=== PATIENT | female | born 2005 | race Caucasian/White ===

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

== ENCOUNTER 2024-01-13 11:23 | Observation (INO) | payer BC, MEDICAID, OTHER ==
[2024-01-14] MEDS ORDERED: NITR-87 PO (00:40)
--- NOTE | 2024-01-15 07:44 | DVHDS2 ---
Physician Discharge Progress N Final Diagnosis: abd pain Operations or Procedures: Operations or Procedures nst,sono Condition on Discharge: Good Disposition: Home Discharge Instructions: Diet: Regular Activity: No Restrictions, As Tolerated Medications: na Follow Up Care: Specialist: 2d Discharge Statement: "Patient was advised to return to the ER or call 911 if any headaches, dizziness, shortness of breath, chest pain, abdominal pain, bleeding, fevers, or worsening of medical condition. Patient was counseled about treatment plan, medications, possible side effects, patientverbalized understanding. All questions were answered to the best of my ability. This discharge took greater then 30 minutes in planning, reviewing documentation, counseling the patient, and discussing with other team members." YASMIN COOPER DO Jan 15, 2024 07:44
== END 2024-01-14 01:01 | disposition home or self-care (01) ==
LOC: LDRP 11:23
PROVIDERS: ADMIT Obstetrics & Gynecology; ATTEND Obstetrics & Gynecology
DX: O26.892 Other specified pregnancy related conditions, second trimester (principal); M79.10 Myalgia, unspecified site; R06.02 Shortness of breath; M79.89 Other specified soft tissue disorders; Z3A.25 25 weeks gestation of pregnancy; Z79.899 Other long term (current) drug therapy
CPT/HCPCS: 59025; 81002; 94760; G0378

== ENCOUNTER 2024-03-19 07:51 | Observation (INO) | payer MEDICAID ==
[~2024-03-19] VITALS: Ht 175.3 cm; Wt 80.7 kg
[~2024-03-19 07:51] MED LIST: NITR-87 PO
[2024-03-19 09:52] LABS: Amphetamine Screen, Urine Neg (NEGATIVE); Barbiturate Scree,Urine Neg (NEGATIVE); Benzodiazephine Screen, Urine Neg (NEGATIVE); Cannabinoid Screen, Urine Neg (NEGATIVE); Cocaine Screen, Urine Neg (NEGATIVE); Opiate Scree,Urine Neg (NEGATIVE); Phencyclidine Screen, Urine Neg (NEGATIVE)
--- NOTE | 2024-03-19 10:51 | DVH ---
LIMITED OB ULTRASOUND > 14 WKS: HISTORY: no records TECHNIQUE: Multiple real-time grayscale images of the gravid uterus with duplex Doppler color flow an d M-mode spectral analysis. TRANSDUCER: Transabdominal FINDINGS: IUP single live fetus at 36 weeks, 1 day based on composite averages of the BPD, head circumference, abdominal circumference and femur length Estimated weight 2811 grams heart rate 133 beats per minute MIKKI 16.6 cm Cervix was not seen. Cephalic Presentation Grade II posterior Placenta without previa or abruption. IMPRESSION: IUP single live fetus at 36 weeks 1 day AUA corresponding to an JERILYN of 3-5-25
[2024-03-19] MEDS: TERBUTALINE SULFATE 1 MG/ML 1ML VIAL SC SCH (11:45)
[2024-03-19] MEDS: BETAMETHASONE ACET (30mg/5ml) 5ml Vial 6mg/ml IM ONE (11:45)
--- NOTE | 2024-03-19 12:07 | DVHDS2 ---
Physician Discharge Progress N Final Diagnosis: ptl,abd pain,no care Operations or Procedures: Operations or Procedures nst,sono Condition on Discharge: Good Disposition: Home Discharge Instructions: Diet: Regular Activity: Light activity Medications: procardia Follow Up Care: Specialist: 1d Discharge Statement: "Patient was advised to return to the ER or call 911 if any headaches, dizziness, shortness of breath, chest pain, abdominal pain, bleeding, fevers, or worsening of medical condition. Patient was counseled about treatment plan, medications, possible side effects, patientverbalized understanding. All questions were answered to the best of my ability. This discharge took greater then 30 minutes in planning, reviewing documentation, counseling the patient, and discussing with other team members." Visit Coding OBGYN Date of Service: Mar 19, 2024 Billing Provider: YASMIN COOPER DO MOTION GRAPHICS DESIGNER Common Visit Codes: [id number] OBS CARE (HIGH), [id number] INP/OBS CARE (HIGH) YASMIN COOPER DO Mar 19, 2024 12:07
[2024-03-19] MEDS ORDERED: NIFE10CA52 PO ×2 (12:22)
--- NOTE | 2024-03-19 13:00 | DVH ---
EXAM: US OBSTERICAL LIMITED, US OB TRANS VAGINAL US HISTORY: CERVICAL LENGTH ONLY COMPARISON: None TECHNIQUE: Transvaginal transabdominal evaluation of the cervix. FINDINGS: In the transabdominal study. The cervix is not well seen. The fetus is in cephalic presentation. Fe ferdinand heart activity is recorded at 143 beats per minute. In the transvaginal evaluation, there is v-shaped funneling of the cervix measuring 0.5 cm in length. Residual cervical length is 2.2 cm. IMPRESSION: 1. V-shaped funneling of the cervix measuring 0.5 cm in length with residual cervical length of 2.2 c m.
[2024-03-20] MEDS ORDERED: CEPH500C PO (12:51)
== END 2024-03-19 12:36 | disposition home or self-care (01) ==
LOC: LDRP 07:51
PROVIDERS: ADMIT Obstetrics & Gynecology; ATTEND Obstetrics & Gynecology
DX: O60.03 Preterm labor without delivery, third trimester (principal); O09.33 Supervision of pregnancy with insufficient antenatal care, third trimester; O21.9 Vomiting of pregnancy, unspecified; O26.893 Other specified pregnancy related conditions, third trimester; R10.9 Unspecified abdominal pain; Z3A.34 34 weeks gestation of pregnancy; Z79.899 Other long term (current) drug therapy
CPT/HCPCS: 59025; 76805; 76815; 76817; 80307; 81002; 94760; 96372; G0378; J0702; J3105

== ENCOUNTER 2024-03-20 11:58 | Observation (INO) | payer MEDICAID ==
[~2024-03-20] VITALS: Ht 175.3 cm; Wt 80.7 kg
[~2024-03-20 11:58] MED LIST changes: +NIFE10CA52 PO
[2024-03-20] MEDS ORDERED: CEPH500C PO (12:51)
[2024-03-20] MEDS: BETAMETHASONE ACET (30mg/5ml) 5ml Vial 6mg/ml IM ONE (13:02)
--- NOTE | 2024-03-20 15:23 | DVHDS2 ---
Physician Discharge Progress N Final Diagnosis: IUP 34 wk, encounter for surveillance Secondary Diagnosis: Threatened labor Operations or Procedures: Operations or Procedures NST Other Interventions Other Interventions 2nd celestone injection Condition on Discharge: Guarded Disposition: Home Discharge Instructions: Diet: Regular Activity: Light activity Activity comment: Pelvic rest Follow Up/Referral: as scheduled Medications: N/A Follow Up Care: Discharge Statement: "Patient was advised to return to the ER or call 911 if any headaches, dizziness, shortness of breath, chest pain, abdominal pain, bleeding, fevers, or worsening of medical condition. Patient was counseled about treatment plan, medications, possible side effects, patientverbalized understanding. All questions were answered to the best of my ability. This discharge took greater then 30 minutes in planning, reviewing documentation, counseling the patient, and discussing with other team members." Visit Coding OBGYN Date of Service: Mar 20, 2024 Billing Provider: KIMBERLY NGUYEN DO SQUIRREL WORKER Common Visit Codes: 43929-PNB/OBS SAME DATE (MOD) SQUIRREL WORKER Procedure Codes: 58898-14- NON-STRESS TEST KIMBERLY NGUYEN DO Mar 20, 2024 15:23
== END 2024-03-20 13:20 | disposition home or self-care (01) ==
LOC: UNDOADMOB 11:58 → LDRP 11:58 → UNDODISOB 13:20
PROVIDERS: ADMIT Obstetrics & Gynecology; ATTEND Obstetrics & Gynecology
DX: O47.03 False labor before 37 completed weeks of gestation, third trimester (principal); Z3A.34 34 weeks gestation of pregnancy; Z79.899 Other long term (current) drug therapy; Z98.890 Other specified postprocedural states
CPT/HCPCS: 59025; 81002; 94760; 96372; G0378

== ENCOUNTER 2024-04-08 23:46 | Observation (INO) | payer MEDICAID ==
[~2024-04-08] VITALS: Ht 175.3 cm; Wt 84.8 kg
[~2024-04-08 23:46] MED LIST changes: +CEPH500C PO; -NITR-87 PO
--- NOTE | 2024-04-09 01:33 | DVH ---
EXAM: US OB ULTRASOUND COMP GTR 14 WKS HISTORY: no records TECHNIQUE: Multiple real-time grayscale images of the gravid uterus with duplex Doppler color flow an d M-mode spectral analysis. COMPARISON: US OB ULTRASOUND COMP GTR 14 WKS on DOS: 03/19/24 FINDINGS: IUP single live fetus at 39 weeks, 2 days average ultrasound age (AUA) based on composite averages of the BPD, head circumference, abdominal circumference and femur length MEASUREMENTS: BPD: 9.5 cm GA: 30 w 5 d HC: 34.76 cm GA: 40 w 2 d AC: 6 cm GA: 40 w 0 d FL: 7.42 cm GA: 38 w 0d Estimated weight 3790 grams; heart rate 152 beats per minute MIKKI 13.4 cm Cephalic Presentation Posterior placenta without previa or abruption IMPRESSION: 1. IUP single live fetus at 39 weeks, 2 days AUA corresponding to an JERILYN of April 14, 2024. 2. No abnormality detected.
[2024-04-09 02:23] LABS: Urine Bacteria FEW /hpf (None Seen); Urine Blood TRACE /uL (Negative); Urine Clarity Turbid (Clear); Urine Color Colorless (Yellow); Urine Mucus FEW (None Seen); Urine Protein, UAD Negative (Negative); Urine Specific Gravity 1.012 (1.001-1.035); Urine Squamous Epithelial Cell MANY /hpf (<5); Urine Urobilinogen 2 mg/dL (Negative); Urine WBC 55 /HPF (0-5)
--- NOTE | 2024-04-09 02:44 | DVHDS2 ---
Physician Discharge Progress N Final Diagnosis: early labor Operations or Procedures: Operations or Procedures S: 18yo IUP@37.5wks presents to OB triage with c/o UCs since 1800. Denies LOF/VB/BRYANT/vision changes/RUQ pain. Endorses +FM. PNC with Dr. Poli Pablo, uncomplicated. O: VSS UA wnl NST reactive SVE by RN: initially /-3 then ambulated and recheck vag exam was unchanged, bloody show noted A: 18yo IUP@37.5wks Early Labor P: D/C home Miles circuit, rest, eat, and sleep recommended kick counts and Preeclampsia warning signs reviewed. Labor precautions given and when to return to the hospital. Other Interventions Other Interventions [place] [id number] Ph: [phone] DIAGNOSTIC IMAGING Diagnostic Imaging Report : [id number] Signed PATIENT: LUZ ELENA TRAN ACCT: [id number] UNIT: [id number] : 2005 LOC: [facility] ROOM / BED: TRIAGE2 / A AGE / SEX: 18 / F ADM STATUS: ADM IN SERVICE 0034 ORDERING PHYSICIAN: CLIFTON MARQUEZ CNM PROCEDURE(s): OBUS - OB ULTRASOUND COMP GTR 14 WKS REASON: no records ORDER NUMBER(s): [id number], ACCESSION NUMBER(s): [id number] EXAM: US OB ULTRASOUND COMP GTR 14 WKS HISTORY: no records TECHNIQUE: Multiple real-time grayscale images of the gravid uterus with duplex Doppler color flow and M-mode spectral analysis. COMPARISON: US OB ULTRASOUND COMP GTR 14 WKS on DOS: 03/19/24 FINDINGS: IUP single live fetus at 39 weeks, 2 days average ultrasound age (AUA) based on composite averages of the BPD, head circumference, abdominal circumference and femur length MEASUREMENTS: BPD: 9.5 cm GA: 30 w 5 d HC: 34.76 cm GA: 40 w 2 d AC: 6 cm GA: 40 w 0 d FL: 7.42 cm GA: 38 w 0d Estimated weight 3790 grams; heart rate 152 beats per minute MIKKI 13.4 cm Cephalic Presentation Posterior placenta without previa or abruption IMPRESSION: 1. IUP single live fetus at 39 weeks, 2 days AUA corresponding to an JERILYN of Apr. 2. No abnormality detected. ATED BY: GIANFRANCO GRANADOS MD DICTATED DATE/TIME: 04/09/24130 SIGNED BY: GIANFRANCO GRANADOS MD SIGNED DATE/TIME: 04/09/24130 CC: Condition on Discharge: Stable Disposition: Home Discharge Instructions: Diet: Regular Activity: No Restrictions, As Tolerated Medications: see med list Follow Up Care: Specialist: f/u with primary OB as scheduled Discharge Statement: "Patient was advised to return to the ER or call 911 if any headaches, dizzin ess, shortness of breath, chest pain, abdominal pain, bleeding, fevers, or worsening of medical condition. Patient was counseled about treatment plan, medications, possible side effects, patientverbalized understanding. All questions were answered to the best of my ability. This discharge took greater then 30 minutes in planning, reviewing documentation, counseling the patient, and discussing with other team members." Visit Coding OBGYN Date of Service: Apr 09, 2024 Billing Provider: CLIFTON MARQUEZ CNM GAMB CUTTER Common Visit Codes: [id number] OBS CARE (LOW) CLIFTON MARQUEZ CNM Apr 09, 2024 02:43
== END 2024-04-09 03:07 | disposition home or self-care (01) ==
LOC: LDRP 23:46
PROVIDERS: ADMIT Obstetrics & Gynecology; ATTEND Obstetrics & Gynecology
DX: O60.03 Preterm labor without delivery, third trimester (principal); Z3A.37 37 weeks gestation of pregnancy
CPT/HCPCS: 59025; 76805; 81001; 81002; G0378

== ENCOUNTER 2024-04-15 14:30 | Observation (INO) | payer MEDICAID ==
[2024-04-15 15:39] LABS: Urine Bacteria FEW /hpf (None Seen); Urine Blood Negative /uL (Negative); Urine Clarity Turbid (Clear); Urine Color YELLOW (Yellow); Urine Mucus FEW (None Seen); Urine Protein, UAD 1+ (Negative); Urine Specific Gravity 1.021 (1.001-1.035); Urine Squamous Epithelial Cell MOD /hpf (<5); Urine Urobilinogen Normal (Negative); Urine WBC 139 /HPF (0-5); Urine pH 6.5 (5.0-9.0)
[2024-04-15 15:41] LABS: Fern Testing Negative
[2024-04-15 16:03] LABS: Basophils # (auto) 0 10 ^3/uL (0-0.2); Eosinophils # (auto) 0 10 ^3/uL (0-0.8); Hemoglobin 10.6 g/dL (12.2-16.2); Lymphocytes # (auto) 1.4 10 ^3/uL (0.4-5.4); Neutrophils # (auto) 5.1 10 ^3/uL (1.6-8.6); Neutrophils % (auto) 71.9 % (37.0-80.0)
[2024-04-15 16:05] LABS: Basophils % (auto) 0.1 % (0.0-2.0); Eosinophils % (auto) 0.7 % (0.0-7.0); Hematocrit 33.1 % (36.0-46.0); Mean Corpuscular Hemoglobin 25.2 pg (28.0-32.0); Mean Corpuscular Hgb Conc. 32.2 g/dL (32.0-36.0); Mean Corpuscular Volume 78.5 fL (80.0-100.0); Monocytes # (auto) 0.6 10 ^3/uL (0-1.3); Monocytes % (auto) 8.3 % (0.0-12.0); Platelet Count (auto) 209 10^3/uL (140-450); Red Blood Cells 4.21 10^6/uL (4.0-5.20); Red Cell Distribution Width 14.9 % (11.8-14.3); White Blood Cell 7.2 10^3/uL (4.4-10.8)
[2024-04-15 16:24] LABS: INR 0.96 (0.9-1.15); Partial Thromboplastin Time 24.9 SEC (24.5-34.5); Prothrombin Time 10.2 sec (9.3-11.8)
[2024-04-15 16:27] LABS: Alanine Aminotransferase 10 U/L (7-40); Albumin 3.4 g/dL (3.2-4.8); Anion Gap 7 (5-15); Aspartate Aminotransferase 14 U/L (13-40); BUN/Creatinine Ratio 13.6 (10.0-20.0); Bilirubin, Total 0.4 mg/dL (0.2-1.0); Calcium 9.2 mg/dL (8.7-10.4); Carbon Dioxide 25 mmol/L (20-31); Chloride 107 mmol/L (98-107); Glucose 94 mg/dL (74-106); Potassium 4.2 mmol/L (3.5-5.1); Sodium 139 mmol/L (136-145); Uric Acid 4.5 mg/dL (3.1-7.8)
[2024-04-15 16:29] LABS: Vaginal Trichomonas Not Present
[2024-04-15 16:30] LABS: Vaginal Bacteria Few; Vaginal Clue Cells None Seen; Vaginal Epithelial Cells Few
[2024-04-15 16:31] LABS: Alkaline Phosphatase 179 U/L (46-116); Blood Urea Nitrogen 6 mg/dL (9-23); Total Protein 5.6 g/dL (5.7-8.2)
--- NOTE | 2024-04-15 16:37 | DVH ---
BIOPHYSICAL PROFILE HISTORY: LOF, r/o PIH TECHNIQUE: Multiple transabdominal real-time grayscale sonographic images through the gravid uterus of the fetus with duplex Doppler color flow and M-mode spectral analysis FINDINGS: BIOPHYSICAL PROFILE: breathing score: 2 movement score: 2 tone score: 2 Quantitative MIKKI score: 2 (MIKKI: 7.75 Cm.) Total score: 8/8 The cervix not measured Single live fetus in vertex presentation. heart rate 149 beats per minute. Fundal Grade 2 placenta without previa or abruption Single live fetus at 38 weeks 4 days Biophysical profile score 8/8 corresponding to an JERILYN of 04/25/2024 IMPRESSION: 1. Biophysical profile score: 8/8
[2024-04-15 17:03] LABS: Protein, Urine 37.4 mg/dL (1-14)
[2024-04-15 17:05] LABS: Creatinine, Urine 144.25 mg/dL (30.0-125.0); Urine Protein/Creatinine Ratio 0.26
[2024-04-15 17:50] LABS: Amphetamine Screen, Urine Neg (NEGATIVE); Barbiturate Scree,Urine Neg (NEGATIVE); Benzodiazephine Screen, Urine Neg (NEGATIVE); Cannabinoid Screen, Urine Neg (NEGATIVE); Cocaine Screen, Urine Neg (NEGATIVE); Opiate Scree,Urine Neg (NEGATIVE); Phencyclidine Screen, Urine Neg (NEGATIVE)
[2024-04-15] MEDS ORDERED: PREN-96 PO (17:58)
--- NOTE | 2024-04-15 18:44 | DVHDS2 ---
Physician Discharge Progress N Final Diagnosis: Early labor Operations or Procedures: Operations or Procedures S: pt is a 18 yo @ 38.4 wks IUP in triage for mild UCs at 1300 (feels them in her lower back), leakage of fluid at 1030, BRYANT, blurry vision, and intermittent RUQ stabbing pain with movement Pt denies VB and endorses +FM. PNC with Dr. Poli Pablo, uncomplicated. records reviewed. O: VSS. Vaginal exam by RN: 3.2 @ 1511 then @ 1754, RN noticed whitish discharge post exam EFM: FHR 140 bpm, moderate variabilty with accels, no decels. [place]: contractions q1-4minutes Morphine rest offered: pt declined Laboratory Tests Test 04/15/24 14:40 04/15/24 15:30 04/15/24 15:51 Range/Units Urine Color Yellow Yellow Urine Clarity Turbid H Clear Urine pH 6.5 5.0-9.0 Urine Specific Ehrhardt 1.021 1.001-1.035 Urine Protein 1+ H Negative Urine Ketones Negative Negative Urine Blood Negative Negative /uL Urine Nitrite Negative Negative Urine Bilirubin Negative Negative Urine Urobilinogen Normal Negative mg/dL Urine Leukocyte Esterase 3+ Negative /uL Urine RBC 7 0 - 4 /hpf Urine Microscopic WBC 139 H 0-5 /HPF Urine Squamous Epithelial Cells Mod <5 /hpf Urine Bacteria Few H None Seen /hpf Urine Mucus Few None Seen Urine Creatinine 144.25 H 30.0-125.0 mg/dL Urine Protein/Creatinine Ratio 0.26 Urine Glucose 2+ H Normal mg/dL Urine Total Protein 37.4 H 1-14 mg/dL Amniotic Fluid Ferning Test Negative Placental Cgzup-0-Lghnforvcnwef Negative Urine Opiates Screen Neg NEGATIVE Urine Fentanyl Screen Neg NEGATIVE Urine Barbiturates Screen Neg NEGATIVE Urine Phencyclidine Screen Neg NEGATIVE Urine Amphetamines Screen Neg NEGATIVE Urine Benzodiazepines Screen Neg NEGATIVE Urine Cocaine Screen Neg NEGATIVE Urine Cannabinoids Screen Neg NEGATIVE Vaginal WBC (Wet Prep) Moderate Vaginal RBC (Wet Prep) Rare Vaginal Epithelial Cells (Wet Prep) Few Vaginal Bacteria (Wet Prep) Few Vaginal Trichomonas (Wet Prep) Not present Vaginal Yeast (Wet Prep) None seen Vaginal Clue Cells (Wet Prep) None seen White Blood Count 7.2 4.4-10.8 10^3/uL Red Blood Count 4.21 4.0-5.20 10^6/uL Hemoglobin 10.6 L 12.2-16.2 g/dL Hematocrit 33.1 L 36.0-46.0 % Mean Corpuscular Volume 78.5 L 80.0-100.0 fL Mean Corpuscular Hemoglobin 25.2 L 28.0-32.0 pg Mean Corpuscular Hemoglobin Concent 32.2 32.0-36.0 g/dL Red Cell Distribution Width 14.9 H 11.8-14.3 % Platelet Count 209 140-450 10^3/uL Mean Platelet Volume 9.1 6.9-10.8 fL Neutrophils (%) (Auto) 71.9 37.0-80.0 % Lymphocytes (%) (Auto) 19.0 10.0-50.0 % Monocytes (%) (Auto) 8.3 0.0-12.0 % Eosinophils (%) (Auto) 0.7 0.0-7.0 % Basophils (%) (Auto) 0.1 0.0-2.0 % Neutrophils # (Auto) 5.1 1.6-8.6 10 ^3/uL Lymphocytes # (Auto) 1.4 0.4-5.4 10 ^3/uL Monocytes # (Auto) 0.6 0-1.3 10 ^3/uL Eosinophils # (Auto) 0 0-0.8 10 ^3/uL Basophils # (Auto) 0 0-0.2 10 ^3/uL Nucleated Red Blood Cells 0.0 % Prothrombin Time 10.2 9.3-11.8 sec Prothrombin Time INR 0.96 0.9-1.15 Activated Partial Thromboplast Time 24.9 24.5-34.5 SEC D-Dimer, Quantitative 2.76 H 0.0-0.49 mg/L FEU Sodium Level 139 136-145 mmol/L Potassium Level 4.2 3.5-5.1 mmol/L Chloride Level 107 98-107 mmol/L Carbon Dioxide Level 25 20-31 mmol/L Anion Gap 7 5-15 Blood Urea Nitrogen 6 L 9-23 mg/dL Creatinine 0.44 L 0.550-1.02 mg/dL Glomerular Filtration Rate Calc 142 >90 mL/min BUN/Creatinine Ratio 13.6 10.0-20.0 Serum Glucose 94 74-106 mg/dL Uric Acid 4.5 3.1-7.8 mg/dL Calcium Level 9.2 8.7-10.4 mg/dL Total Bilirubin 0.4 0.2-1.0 mg/dL Aspartate Amino Transferase (AST) 14 13-40 U/L Alanine Aminotransferase (ALT) 10 7-40 U/L Alkaline Phosphatase 179 H 46-116 U/L Lactate Dehydrogenase 161 120-246 U/L Total Protein 5.6 L 5.7-8.2 g/dL Albumin 3.4 3.2-4.8 g/dL A: 18 yo @ 38.4 wks Early labor Category I EFM tracing P: D/C home Miles circuit, Spinning Babies, rest, eat, and sleep recommended kick counts and Preeclampsia warning signs reviewed. Labor precautions given and when to return to the hospital. Dr Shahid consulted: agrees with POC Other Interventions Other Interventions [place] [address] Ph: [phone] DIAGNOSTIC IMAGING Diagnostic Imaging Report : [id number] Signed PATIENT: LUZ ELENA TRAN ACCT: [id number] UNIT: [id number] : 2005 LOC: [facility] ROOM / BED: TRIAGE2 / A AGE / SEX: 18 / F ADM STATUS: ADM IN SERVICE 1540 ORDERING PHYSICIAN: CLIFTON MARQUEZ CNM PROCEDURE(s): BPP - BIOPHYSICAL PROFILE REASON: LOF, r/o PIH ORDER NUMBER(s): [id number], ACCESSION NUMBER(s): [id number] BIOPHYSICAL PROFILE HISTORY: LOF, r/o PIH TECHNIQUE: Multiple transabdominal real-time grayscale sonographic images through the gravid uterus of the fetus with duplex Doppler color flow and M-mode spectral analysis FINDINGS: BIOPHYSICAL PROFILE: breathing score: 2 movement score: 2 tone score: 2 Quantitative MIKKI score: 2 (MIKKI: 7.75 Cm.) Total score: 8/8 The cervix not measured Single live fetus in vertex presentation. heart rate 149 beats per minute. Fundal Grade 2 placenta without previa or abruption Single live fetus at 38 weeks 4 days Biophysical profile score 8/8 corresponding to an JERILYN of 04/25/2024 IMPRESSION: 1. Biophysical profile score: 8/8 ATED BY: JACQUES MELENDEZ Jr., DO DICTATED DATE/TIME: 04/15/241634 SIGNED BY: JACQUES MELENDEZ Jr., SIGNED DATE/TIME: 04/15/241634 CC: Condition on Discharge: Stable Disposition: Home Discharge Instructions: Diet: Regular Activity: No Restrictions, As Tolerated Follow Up/Referral: F/u with Dr. Pablo by saturday Medications: Continue w/ presribed meds Follow Up Care: Specialist: F/u with Dr. Pablo by saturday Discharge Statement: "Patient was advised to return to the ER or call 911 if any headaches, dizziness, shortness of breath, chest pain, abdominal pain, bleeding, fevers, or worsening of medical condition. Patient was counseled about treatment plan, medications, possible side effects, patientverbalized understanding. All questions were answered to the best of my ability. This discharge took greater then 30 minutes in planning, reviewing documentation, counseling the patient, and discussing with other team members." Visit Coding OBGYN Date of Service: Apr 15, 2024 Billing Provider: CLIFTON MARQUEZ CNM GAMMA RAY OPERATOR Common Visit Codes: [id number] OBS CARE (MOD) GAMMA RAY OPERATOR Procedure Codes: 31930-82- NON-STRESS TEST DENISA BRIONES MDWF Apr 15, 2024 18:44
== END 2024-04-15 18:14 | disposition home or self-care (01) ==
LOC: LDRP 14:30 → UNDOADMOB 14:30 → LDRP 14:39
PROVIDERS: ADMIT Obstetrics & Gynecology; ATTEND Obstetrics & Gynecology
DX: O60.03 Preterm labor without delivery, third trimester (principal); Z3A.38 38 weeks gestation of pregnancy; Z79.899 Other long term (current) drug therapy; Z86.2 Personal history of diseases of the blood and blood-forming organs and certain disorders involving the immune mechanism
CPT/HCPCS: 36415; 59025; 76819; 80053; 80307; 81001; 81002; 82570; 83615; 84112; 84156; 84550; 85025; 85379; 85610; 85730; 87210; 94760; G0378; Q0114; 76818

== ENCOUNTER 2024-04-18 19:40 | Inpatient (IN) | payer MEDICAID ==
[~2024-04-18] VITALS: Ht 175.3 cm; Wt 63.5 kg
[~2024-04-18 19:40] MED LIST changes: +PREN-96 PO
[2024-04-18] MEDS ORDERED: BUTORPHANOL TARTRATE 2 MG/1 ML VIAL IV PRN ×2 (21:00)
[2024-04-18] MEDS ORDERED: LIDOCAINE 2%HCL (LOCAL ANESTH.) INJ 20ML MDV IJ PRN (21:00)
--- NOTE | 2024-04-18 21:39 | DVHHP2 ---
OB CC & HPI Date Date of Admission: Apr 18, 2024 Patient Identification: EDC: Apr 12, 2024 EGA: 40 / Chief Complaints: Reason for admission: active labor Other reason for admission: labor History of Present Complaints Ob early care 11 week US Past Medical History Cardiac: No pertinent Hx Pulmonary: No pertinent Hx Central Nervous System: No pertinent Hx GI: No pertinent Hx Hemotology/Oncology: No pertinent Hx Hepatobiliary: No pertinent Hx Psychiatric: No pertinent Hx Musculoskeletal: No pertinent Hx Rheumotologic: No pertinent Hx Infectious Disease: No peritnent Hx ENT: No pertinent Hx Renal/: No pertinent Hx Endocrine: No pertinent Hx Dermatology: No pertinent Hx Past Surgical History: No pertinent Hx OB History OB History Care: Good Care Ultrasounds: Normal mid trimester US Obstetrical Complications: None Medical Complications: None Allergies: Coded Allergies: NO KNOWN ALLERGIES (Unverified , 04/09/24) Home Meds Reported Medications Vit W/ Ferrous Fumara ( One Daily) Daily Tab, 1 TAB PO DAILY, #90 TAB 3 Refills 04/15/24 Cephalexin Monohydrate (Cephalexin) 500 Mg Cap, 500 MG PO Q6HR for 7 Days, #28 MG 03/20/24 Nifedipine (PROCARDIA CAPSULE) 10 Mg Cp, 10 MG PO Q4HR for 14 Days, CAP 03/19/24 Current Medications Current Medications Medications (Trade) Dose Ordered Sig/Norris Route PRN Reason Start Time Stop Time Status Last Admin Lactated Ringer's 1,000 ml @ 125 mls/hr Q8H IV 04/18/24 21:00 Lisa Ramirez (Tucks) 1 pad PRN PRN TOP PERINEAL AREA DISCOMFORT 04/18/24 21:00 Sodium Lauryl Sulfate (Phisoderm) 240 ml PRN PRN TOP PERINEAL AREA DISCOMFORT 04/18/24 21:00 Benzocaine (Dermoplast) 1 applic PRN PRN TOP PERINEAL AREA DISCOMFORT 04/18/24 21:00 Butorphanol Tartrate (Stadol Injection) 1 mg Q4HPRN PRN IV MODERATE PAIN (4-6 PAIN SCALE) 04/18/24 21:00 Butorphanol Tartrate (Stadol Injection) 2 mg Q4HPRN PRN IV SEVERE PAIN (7-10 PAIN SCALE) 04/18/24 21:00 Lidocaine HCl (Xylocaine) 20 ml ONCE PRN IJ PERINEAL AREA DISCOMFORT 04/18/24 21:00 Family & Social History Family/Social History Blood Type: O+ Rubella: immune RPR/VDRL: Negative GBS Status: Negative HBsAG: Negative Review of Systems Constitutional: No symptom reported Ears, Nose, & Throat: No symptom reported Eyes: No symptom reported Pulmonary/Respiratory: No symptom reported Cardiovascular: No symptom reported Gastrointestinal: No symptom reported Genitourinary: No symptom reported Musculoskeletal: No symptom reported Skin: No symptom reported Psychiatric: No symptom reported Endocrine: No symptom reported Hemotologic/Lymphatic: No symptom reported OB Admission Exam Physical Exam HEENT: TMs Normal, Fontanelles Normal, Nasal Mucosa Normal, Eyes non-injected, Oropharynx Normal, PERRLA, Moist Membranes, EOMI Heart: Rhythm Normal Lungs: Clear Abdomen: Gravid Extremities: Normal Reflexes: Normal Cervical Dilatation: 7cm Effacement: 75% Station: -2 Membranes: Intact Heart Rate: 130's Accelerations: Accelerations Present Decelerations: No Decelerations Short Term Variability: Present Care Home Variability: Average (6-25) Contractions on Admission: None Intensity: Moderate OB Plan Plan Admitting Diagnosis: onset of labor 40 6/7 wks Plan: Expectant Management CHYNA VARGAS DO Apr 18, 2024 21:39
--- NOTE | 2024-04-18 21:40 | LDN2 ---
Labor and Delivery Note Date 04/18/24 Age 18 1 Para 0 AB 0 EDC 04/13/2024 EGA 40 6/ Diagnosis active labor Vaginal Delivery: VTX Vacuum Assisted: No Placenta: Spontaneous Sex: Female Weight 3405 Apgars 9/9 Nuchal Cord Transected: No Amniotic Fluid: Clear Episiotomy: No Extension: Yes (1st degree bilateral) Repaired with 2-0 chromic EBL 300cc Complications none Conditions stable guarded Cat Scanner Operator none present CHYNA VARGAS DO Apr 18, 2024 21:40
[2024-04-18 21:58] LABS: Basophils # (auto) 0 10 ^3/uL (0-0.2); Eosinophils # (auto) 0 10 ^3/uL (0-0.8); Hemoglobin 10.7 g/dL (12.2-16.2); Monocytes # (auto) 0.6 10 ^3/uL (0-1.3); Nucleated Red Blood Cells % 0.1 %
[2024-04-18 21:59] LABS: Basophils % (auto) 0.2 % (0.0-2.0); Eosinophils % (auto) 0.4 % (0.0-7.0); Hematocrit 33.2 % (36.0-46.0); Lymphocytes # (auto) 1.8 10 ^3/uL (0.4-5.4); Lymphocytes % (auto) 21.7 % (10.0-50.0); Mean Corpuscular Hemoglobin 25.1 pg (28.0-32.0); Mean Corpuscular Hgb Conc. 32.3 g/dL (32.0-36.0); Mean Corpuscular Volume 77.7 fL (80.0-100.0); Monocytes % (auto) 7.1 % (0.0-12.0); Neutrophils # (auto) 5.9 10 ^3/uL (1.6-8.6); Neutrophils % (auto) 70.6 % (37.0-80.0); Platelet Count (auto) 210 10^3/uL (140-450); Red Blood Cells 4.27 10^6/uL (4.0-5.20); Red Cell Distribution Width 14.7 % (11.8-14.3); White Blood Cell 8.4 10^3/uL (4.4-10.8)
[2024-04-18] MEDS ORDERED: TERBUTALINE SULFATE 1 MG/ML 1ML VIAL SC PRN (22:00)
[2024-04-18 22:08] LABS: Urine Bacteria FEW /hpf (None Seen); Urine Blood 3+ /uL (Negative); Urine Clarity Turbid (Clear); Urine Color Colorless (Yellow); Urine Hyaline Cast FEW /lpf (0 - 2); Urine Mucus FEW (None Seen); Urine Protein, UAD TRACE (Negative); Urine Specific Gravity 1.009 (1.001-1.035); Urine Squamous Epithelial Cell MOD /hpf (<5); Urine Urobilinogen Normal (Negative); Urine WBC 149 /HPF (0-5)
[2024-04-18 22:15] LABS: Amphetamine Screen, Urine Neg (NEGATIVE); Barbiturate Scree,Urine Neg (NEGATIVE); Benzodiazephine Screen, Urine Neg (NEGATIVE); Cannabinoid Screen, Urine Neg (NEGATIVE); Cocaine Screen, Urine Neg (NEGATIVE); Opiate Scree,Urine Neg (NEGATIVE); Phencyclidine Screen, Urine Neg (NEGATIVE)
[2024-04-18] MEDS ORDERED: NALOXONE HCL 0.4 MG/ML VIAL IV ONE (22:15)
[2024-04-18] MEDS ORDERED: ePHEDrine SULFATE 50 MG/ML AMP IV ONE (22:15)
[2024-04-18] MEDS ORDERED: LIDOCAINE HCL 2 %PF INJ 10ML AMP IJ ONE (22:15)
[2024-04-18] MEDS ORDERED: LIDOCAINE 1%-Mpf/Epinephrine 1:200,000 30ml VIAL IJ ONE (22:15)
[2024-04-18] MEDS ORDERED: Lidocaine W-Epinephrine 1.5%-1:200,000 INJ 10ml Vial IJ ONE (22:15)
[2024-04-18 22:16] LABS: Alanine Aminotransferase 10 U/L (7-40); Albumin 3.7 g/dL (3.2-4.8); Anion Gap 8 (5-15); Aspartate Aminotransferase 16 U/L (13-40); BUN/Creatinine Ratio 11.1 (10.0-20.0); Carbon Dioxide 23 mmol/L (20-31); Glucose 90 mg/dL (74-106); Potassium 3.8 mmol/L (3.5-5.1); Sodium 140 mmol/L (136-145); Total Protein 6.3 g/dL (5.7-8.2)
[2024-04-18 22:17] LABS: Bilirubin, Total 0.4 mg/dL (0.2-1.0)
[2024-04-18 22:21] LABS: Alkaline Phosphatase 197 U/L (46-116); Blood Urea Nitrogen 6 mg/dL (9-23); Chloride 109 mmol/L (98-107)
[2024-04-18 22:36] LABS: INR 0.97 (0.9-1.15); Partial Thromboplastin Time 24.8 SEC (24.5-34.5); Prothrombin Time 10.3 sec (9.3-11.8)
[2024-04-18] MEDS: WITCH HAZEL-GLYCERIN PAD TOP PRN (23:55)
[2024-04-18] MEDS: PHISODERM TOP SOLN 240ML BTL TOP PRN (23:55)
[2024-04-18] MEDS: DERMOPLAST 60ML BOTTLE TOP PRN (23:55)
[2024-04-19] MEDS ORDERED: ONDANSETRON ODT 4 MG TAB PO PRN (03:00)
[2024-04-19 04:00] VITALS: BP 125/74; PULSE 85; RESP 18; TEMP 98.8
[2024-04-19] MEDS: LIDOCAINE 2%HCL (LOCAL ANESTH.) INJ 10ml MDV IJ ONE (05:13)
[2024-04-19] MEDS: LACT. RINGERS/OXYTOCIN 20UNITS 1,000 ML IV ONE (05:13)
[2024-04-19] MEDS: ROPIVACAINE HCL 200 ML ONE (05:13)
[2024-04-19] MEDS: OXYTOCIN 20 UNT in SODIUM CHLORIDE 0.9% 1,000 ML IV ONE (05:15)
[2024-04-19] MEDS: LACTATED RINGER'S 1,000 ML IV SCH (05:17)
[2024-04-19] MEDS: LACTATED RINGER'S 1,000 ML IV ONE (05:17)
[2024-04-19] MEDS: LIDOCAINE 2%HCL (LOCAL ANESTH.) INJ 10ml MDV ONE (05:18)
[2024-04-19] MEDS: SODIUM CHLORIDE 0.9% 500 ML IV PRN (05:18)
[2024-04-19 07:00] VITALS: BP 123/64; PULSE 86; RESP 16; TEMP 97.9; O2SAT 97
--- NOTE | 2024-04-19 08:19 | DVHPN2 ---
Chief Complaints Patient reports: No new complaints, Feels better Nursing reports: No new complaints, No abdominal pain, No chest pain, No dizziness, No cough Objective Vitals Vital Signs Date Time Temp Pulse Resp B/P (MAP) Pulse Ox O2 Delivery O2 Flow Rate FiO2 04/19/24 04:00 Room Air 04/19/24 04:00 98.8 85 18 125/74 (91) 98.8 Medications Current Medications Medications (Trade) Dose Ordered Sig/Norris Route PRN Reason Start Time Stop Time Status Last Admin Acetaminophen (Tylenol Tablet) 650 mg Q4HP PRN PO MILD PAIN (1-3 PAIN SCALE) 04/19/24 03:00 Benzocaine (Dermoplast) 1 applic PRN PRN TOP PERINEAL AREA DISCOMFORT 04/18/24 21:00 04/18/24 23:55 Butorphanol Tartrate (Stadol Injection) 1 mg Q4HPRN PRN IV MODERATE PAIN (4-6 PAIN SCALE) 04/18/24 21:00 Butorphanol Tartrate (Stadol Injection) 2 mg Q4HPRN PRN IV SEVERE PAIN (7-10 PAIN SCALE) 04/18/24 21:00 Docusate Sodium (Colace Capsule) 200 mg HS PO 04/19/24 22:00 Ibuprofen (Motrin Tablet) 600 mg Q6HP PRN PO MODERATE PAIN (4-6 PAIN SCALE) 04/19/24 03:00 Lactated Ringer's 1,000 ml @ 125 mls/hr Q8H IV 04/18/24 21:00 Lidocaine HCl (Xylocaine) 20 ml ONCE PRN IJ PERINEAL AREA DISCOMFORT 04/18/24 21:00 Ondansetron HCl (Zofran Po) 4 mg Q4HPRN PRN PO NAUSEA / VOMITING 04/19/24 03:00 Sodium Chloride 500 ml @ 500 mls/hr Q1H PRN IV FOR BP LESS THAN 90 04/18/24 22:15 Sodium Lauryl Sulfate (Phisoderm) 240 ml PRN PRN TOP PERINEAL AREA DISCOMFORT 04/18/24 21:00 04/18/24 23:55 Terbutaline Sulfate (Brethine Inj) 0.25 mg ONCE PRN SC Uterine tachysystole 04/18/24 22:00 Lisa Ramirez (Tucks) 1 pad PRN PRN TOP PERINEAL AREA DISCOMFORT 04/18/24 21:00 04/18/24 23:55 Comment Patient ambulating minimal lochia tolerating her diet passing flatness General: Normal Neck: Normal Lungs: Normal Cardiovascular: Normal Abdominal: Normal (Twelve week size for) Musculoskeletal: Normal Extremities: No clubbing Skin: Normal Neurological: Normal Studies Laboratory Tests 04/18/24 21:38 Test 04/18/24 21:38 Range/Units Serum Glucose 90 74-106 mg/dL Ass/Plan Assessment day 0 stable improved Plan Advanced care see orders. CHYNA VARGAS DO Apr 19, 2024 08:19
[2024-04-19 11:20] VITALS: BP 111/56; PULSE 78; RESP 18; TEMP 98.1; O2SAT 97
[2024-04-19 19:00] VITALS: BP 117/66; PULSE 86; RESP 18; TEMP 97.9; O2SAT 95
[2024-04-19] MEDS: ACETAMINOPHEN 325 MG TAB PO PRN (19:15)
[2024-04-19] MEDS: DOCUSATE SOD 100 MG CAP PO SCH (22:03)
[2024-04-19 23:10] VITALS: BP 118/75; PULSE 76; RESP 18; TEMP 97.8; O2SAT 98
[2024-04-20 03:25] VITALS: BP 127/69; PULSE 88; RESP 18; TEMP 98.3; O2SAT 97
[2024-04-20] MEDS: IBUPROFEN 600 MG TAB PO PRN (05:43)
--- NOTE | 2024-04-20 06:04 | DVHPN2 ---
Chief Complaints Patient reports: No new complaints (PPD #1), Feels better, Other (minimal lochia) Nursing reports: No new complaints, No abdominal pain, No chest pain, No dizziness, No cough Objective Vitals Vital Signs Date Time Temp Pulse Resp B/P (MAP) Pulse Ox O2 Delivery O2 Flow Rate FiO2 04/20/24 03:25 98.3 88 18 127/69 (88) 97 98.3 04/19/24 19:00 Room Air 04/19/24 07:00 0.0 Medications Current Medications Medications (Trade) Dose Ordered Sig/Norris Route PRN Reason Start Time Stop Time Status Last Admin Docusate Sodium (Colace Capsule) 200 mg HS PO 04/19/24 22:00 04/19/24 22:03 General: Normal Neck: Normal Lungs: Normal Cardiovascular: Normal Abdominal: Normal (Twelve week size for) Musculoskeletal: Normal Extremities: No clubbing Skin: Normal Neurological: Normal Studies Laboratory Tests 04/18/24 21:38 Test 04/18/24 21:38 Range/Units Serum Glucose 90 74-106 mg/dL Ass/Plan Assessment day 1 stable improved; 1st degree vag repair Plan See DC summary See DC orders CHYNA VARGAS DO Apr 20, 2024 06:04
--- NOTE | 2024-04-20 06:08 | DVHDS2 ---
Discharge Summary Date of Admission Apr 18, 2024 at 20:55 Date of Discharge: Apr 20, 2024 Admitting Diagnosis Labor Wounds: Vag perineum well Labs/Diagnostic Data: Laboratory Results Test 04/18/24 21:38 04/18/24 19:50 White Blood Count 8.4 10^3/uL (4.4-10.8) Red Blood Count 4.27 10^6/uL (4.0-5.20) Hemoglobin 10.7 g/dL (12.2-16.2) Hematocrit 33.2 % (36.0-46.0) Mean Corpuscular Volume 77.7 fL (80.0-100.0) Mean Corpuscular Hemoglobin 25.1 pg (28.0-32.0) Mean Corpuscular Hemoglobin Concent 32.3 g/dL (32.0-36.0) Red Cell Distribution Width 14.7 % (11.8-14.3) Platelet Count 210 10^3/uL (140-450) Mean Platelet Volume 9.0 fL (6.9-10.8) Neutrophils (%) (Auto) 70.6 % (37.0-80.0) Lymphocytes (%) (Auto) 21.7 % (10.0-50.0) Monocytes (%) (Auto) 7.1 % (0.0-12.0) Eosinophils (%) (Auto) 0.4 % (0.0-7.0) Basophils (%) (Auto) 0.2 % (0.0-2.0) Neutrophils # (Auto) 5.9 10 ^3/uL (1.6-8.6) Lymphocytes # (Auto) 1.8 10 ^3/uL (0.4-5.4) Monocytes # (Auto) 0.6 10 ^3/uL (0-1.3) Eosinophils # (Auto) 0 10 ^3/uL (0-0.8) Basophils # (Auto) 0 10 ^3/uL (0-0.2) Nucleated Red Blood Cells 0.1 % Prothrombin Time 10.3 sec (9.3-11.8) Prothrombin Time INR 0.97 (0.9-1.15) Activated Partial Thromboplast Time 24.8 SEC (24.5-34.5) Sodium Level 140 mmol/L (136-145) Potassium Level 3.8 mmol/L (3.5-5.1) Chloride Level 109 mmol/L (98-107) Carbon Dioxide Level 23 mmol/L (20-31) Anion Gap 8 (5-15) Blood Urea Nitrogen 6 mg/dL (9-23) Creatinine 0.54 mg/dL (0.550-1.02) Glomerular Filtration Rate Calc 135 mL/min (>90) BUN/Creatinine Ratio 11.1 (10.0-20.0) Serum Glucose 90 mg/dL (74-106) Calcium Level 9.0 mg/dL (8.7-10.4) Total Bilirubin 0.4 mg/dL (0.2-1.0) Aspartate Amino Transferase (AST) 16 U/L (13-40) Alanine Aminotransferase (ALT) 10 U/L (7-40) Alkaline Phosphatase 197 U/L (46-116) Total Protein 6.3 g/dL (5.7-8.2) Albumin 3.7 g/dL (3.2-4.8) Hepatitis C Antibody Negative (Negative) Urine Color Colorless (Yellow) Urine Clarity Turbid (Clear) Urine pH 7.0 (5.0-9.0) Urine Specific [place] 1.009 (1.001-1.035) Urine Protein Trace (Negative) Urine Ketones Negative (Negative) Urine Blood 3+ /uL (Negative) Urine Nitrite Negative (Negative) Urine Bilirubin Negative (Negative) Urine Urobilinogen Normal mg/dL (Negative) Urine Leukocyte Esterase 2+ /uL (Negative) Urine RBC 6 /hpf (0 - 4) Urine Microscopic WBC 149 /HPF (0-5) Urine Squamous Epithelial Cells Mod /hpf (<5) Urine Bacteria Few /hpf (None Seen) Urine Hyaline Casts Few /lpf (0 - 2) Urine Mucus Few (None Seen) Urine Glucose Normal mg/dL (Normal) Urine Opiates Screen Neg (NEGATIVE) Urine Fentanyl Screen Neg (NEGATIVE) Urine Barbiturates Screen Neg (NEGATIVE) Urine Phencyclidine Screen Neg (NEGATIVE) Urine Amphetamines Screen Neg (NEGATIVE) Urine Benzodiazepines Screen Neg (NEGATIVE) Urine Cocaine Screen Neg (NEGATIVE) Urine Cannabinoids Screen Neg (NEGATIVE) Other Laboratory Tests 04/18/24 21:38 Brief Hx & Hospital Course: S/P Consults/Reason for consult none Operations or Procedures 1st degree repair, Condition at Discharge: Good Final Diagnosis/Problems List s/p Discharge Disposition: Home SNF Discharge Will this Physician continue t: No Discharge Instruct/Medications Diet: Regular Activity: Light activity (pelvic rest 8 weeks , bleeding precautions, fever precautions.) Follow Up/Referral: 2 weeks with primary OB / TRANSITION MANAGER or prn fever or excessive bleeding Medications: none Discharge Statement: "Patient was advised to return to the ER or call 911 if any headaches, dizziness, shortness of breath, chest pain, abdominal pain, bleeding, fevers, or worsening of medical condition. Patient was counseled about treatment plan, medications, possible side effects, patientverbalized understanding. All questions were answered to the best of my ability. This discharge took greater then 30 minutes in planning, reviewing documentation, counseling the patient, and discussing with other team members." ASSESSMENT ASSESSMENT Assessment Visit Coding OBGYN Date of Service: Apr 20, 2024 Billing Provider: CHYNA VARGAS DO TECHNICAL CABLE JOINTER Common Visit Codes: [id number] INP/OBS CARE(HIGH) TECHNICAL CABLE JOINTER Procedure Codes: 04865-UAVAG OB CARE,VAG DELIVERY CHYNA VARGAS DO Apr 20, 2024 06:08
[2024-04-20 07:00] VITALS: BP 114/67; PULSE 74; RESP 16; O2SAT 98
[2024-04-21 07:07] LABS: RPR Non Reactive (Non Reactive)
== END 2024-04-20 12:50 | disposition home or self-care (01) | DRG 560 ==
LOC: LDRP 19:40 → OBSVTOIN 20:55 → LDRP 04-19 03:05
PROVIDERS: ADMIT Obstetrics & Gynecology; ATTEND Obstetrics & Gynecology
PROC: 10E0XZZ Delivery of Products of Conception, External Approach (ICD-10-PCS; principal; 2024-04-19)
PROC: 0HQ9XZZ Repair Perineum Skin, External Approach (ICD-10-PCS; 2024-04-19)
DX: O48.0 Post-term pregnancy (principal); Z37.0 Single live birth; O71.4 Obstetric high vaginal laceration alone; Z3A.40 40 weeks gestation of pregnancy; Z79.2 Long term (current) use of antibiotics
CPT/HCPCS: 36415; 59025; 59409; 62282; 80053; 80307; 81001; 81002; 85025; 85610; 85730; 86592; 86780; 86803; 86850; 86900; 86901; 94760; 96360; 96361; 96365; 96366; G0378; J2003; J2590